=== PATIENT | male | born 1970 | race Caucasian/White ===

== ENCOUNTER 2016-09-08 04:41 | Emergency (ER) | payer BC, OTHER ==
[~2016-09-08] VITALS: Ht 177.8 cm; Wt 81.6 kg
[~2016-09-08 04:41] MED LIST: ACHD5005 PO; ASP81CT PO; CPR500T PO; NAPR-243 PO; PHEN100T26 PO
--- OUTSIDE RECORDS SUMMARY | 2016-09-08 04:46 | XMS REPORT | Continuity of Care Document ---
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 If you do not see the information that you expected, contact Release of Information in the Health Information Management department at [phone] for further assistance in locating additional records.[facility] Active Allergies and Adverse Reactions Allergen Noted Date Severity Reactions Comments Penicillins 01/23/2015 Medium RASH Current Medications Prescription Sig. Disp. Refills Start End Date Status Date hydrOXYzine (ATARAX) 25 Take 1 Tab by mouth at 30 Tab 5 04/25/20 Active mg tablet bedtime daily. Take four 15 tablets by mouth at bedtime. Active Problems Problem Noted Date Chronic urticaria 04/25/2015 Overview: He's had red, raised, demarcated, itchy areas of the face, neck, and extremities that come & go in 1-3 hours and occur every few weeks. He was having skin itching on most days. This was going for for 6 years. He was previously taking loratadine and diphenhydramine and was changed to hydroxyzine 50mg qHS at last visit. He's had no rash and less itching since taking hydroxyzine which is an improvement from previous. He did start having bilateral morning foot pain after starting hydroxyzine. It's not a commonly known side effect of hydroxyzine but it's possible. We discussed changing hydroxyzine to another antihistamine versus staying with hydroxyzine but lowering the dose to 25mg nightly. Patient decided to stay with hydroxyzine and lower the dose to 25mg nightly. Return to clinic in about 3-4 months. Angioedema 01/23/2015 Overview: He had an episode of top lip swelling in 2007 that resolved in 3-4 hrs after taking Benadryl. This same thing recurred in April 2014 and July 2014 with same treatment. In October 2014 he had bottom lip swelling that progressed to one side of top lip, then entire top lip, then surrounding cheeks. He took Benadryl and went to Urgent Care where he received steroid shot. He was given Epi pens to go home with. Swelling took 3 days to resolve that time. He had a follow-up appointment with his PCP in [place] a few days later and at that time had blood tests for IgE and a basic food serum allergen profile. His IgE was > 2000 U/ml. None of the serum allergy tests were elevated with the exception of a very mild elevation (0.11 kU/L) to milk and scallops and a mild elevation (0.18 kU/L) to clam. He denies eating clams or scallops, though he does ingest milk. A serum tryptase was not elevated. There has been no itching associated with the lip swelling. And he's had no airway involvement in any of the episodes. He stopped taking aspirin 81mg after the episode in October 2014. He was not having airway compromising angioedema, which is consistent with idiopathic angioedema (as opposed to allergic or hereditary angioedema). He does have an Epi-pen at home which he can use. It was previously discussed with patient that further testing (with C1 esterase level and/or functional assay) is an option, but will not necessarily be helpful; hereditary angioedema is highly unlikely as he is having associated hives, and the onset of his symptoms was around age 38. Given the non-seasonal, non-food related, non-insect related character of his symptoms, further allergy testing would not be warranted unless he has recurrent symptoms or new airway compromise, and then we would recommend further testing. No episodes of lip or tongue swelling since prior to last visit. Social History Tobacco Use Types Packs/Day Years Used Date Never Smoker Smokeless Tobacco: Never Used Alcohol Use Drinks/Week oz/Week Comments No Last Filed Vital Signs Vital Sign Reading Time Taken Blood Pressure 120/75 04/24/2015 4:00 PM CDT Pulse 69 04/24/2015 4:00 PM CDT Temperature 36.9 C (98.5 F) 04/24/2015 4:00 PM CDT Respiratory Rate 20 04/24/2015 4:00 PM CDT Height 1.575 m (5' 2.01") 04/24/2015 4:00 PM CDT Weight 78.926 kg (174 lb) 04/24/2015 4:00 PM CDT Body Mass Index 31.82 04/24/2015 4:00 PM CDT Oxygen Saturation - - Plan of Care Health Maintenance Due Date Last Done Comments Physical (Comprehensive) 1975 Exam Pertussis Vaccine 1979 Tetanus Vaccine 1985 Influenza Vaccine 05/09/2016 Results from Last 3 Months Not on file
[2016-09-08] MEDS ORDERED: HYDR-700 PO (04:50)
--- NOTE | 2016-09-08 05:14 | ED General ---
General Chief Complaint: Facial Problems Stated Complaint: FACIAL SWELLING Nursing Triage Note: Patient reports facial swelling x 2 hours. patient reports having a history of angioedema. denies throat or tongue involvement. patient took hydroxyzine and benadryl [employer] WORK[employer] Nursing Sepsis Screen: No Definite Risk Source of Information: Patient Exam Limitations: No Limitations History of Present Illness Time Seen by Provider: 04:57 Initial Comments This 46-year-old gentleman with history of angioedema presents with left lower facial swelling of sudden onset without any known trigger. He has had multiple episodes in the past and has been evaluated by a specialist. He reports steroid injections usually help resolve the symptoms. He takes hydroxyzine daily and he took 55 mg of Benadryl at home at 03:00 as well. He denies any respiratory, throat, or tongue symptoms. Allergies and Home Medications Allergies Coded Allergies: Penicillins (Verified Allergy, Mild, 09/30/12) Home Medications Aspirin 81 Mg Chew 81 MG PO DAILY (Reported) Hydroxyzine HCl 25 Mg Tablet 25 MG PO DAILY (Reported) Prednisone 20 Mg Tab #6 20 MG PO BID Prescribed by: LO CASANOVA on 09/08/16 0516 Constitutional: no symptoms reported EENTM: see HPI Respiratory: no symptoms reported Cardiovascular: no symptoms reported Gastrointestinal: no symptoms reported Genitourinary: no symptoms reported Musculoskeletal: no symptoms reported Skin: no symptoms reported Psychiatric/Neurological: No Symptoms Reported Hematologic/Lymphatic: No Symptoms Reported Past [id number] Hx Patient Social History Alcohol Use: Denies Use Recreational Drug Use: No Smoking Status: Never a Smoker Recent Foreign Travel: No Contact w/Someone Who Travel: No Recent Infectious Disease Expo: No Recent Hopitalizations: No Physical Abuse Screen: No Sexual Abuse: No Surgeries HX Surgeries: No Respiratory Hx Respiratory Disorders: No Cardiovascular Hx Cardiac Disorders: Yes (angioedema) Neurological Hx Neurological Disorders: No Reproductive System Hx Reproductive Disorders: No Sexually Transmitted Disease: No Genitourinary Hx Genitourinary Disorders: No Gastrointestinal Hx Gastrointestinal Disorders: No Musculoskeletal Hx Musculoskeletal Disorders: No Endocrine Hx Endocrine Disorders: No HEENT HX ENT Disorders: No Cancer Hx Cancer: No Psychosocial Hx Psychiatric Problems: No Integumentary HX Skin/Integumentary Disorder: No Blood Transfusions Hx Blood Disorders: No Physical Exam Vital Signs Vital Sign - Last 12Hours 09/08/16 04:45 Temp 96.1 Pulse 68 Resp 18 B/P 134/87 Pulse Ox 97 Capillary Refill : Less Than 3 Seconds General Appearance: No Apparent Distress WD/WN HEENT: PERRL/EOMI Pharynx Normal Other (left facial and lip swelling) Neck: Normal Inspection Respiratory: Lungs Clear Normal Breath Sounds No Accessory Muscle Use No Respiratory Distress Cardiovascular: Regular Rate, Rhythm No Edema No Murmur Normal Peripheral Pulses Extremity: Normal Inspection No Pedal Edema Neurologic/Psychiatric: Alert Oriented x3 No Motor/Sensory Deficits Normal 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 Norm as Tested Skin: Normal Color Warm/Dry Progress/Results/Core Measures Results/Orders My Orders Orders-LO DUBOSE MD Saline Lock/Iv-Start (09/08/16 05:05) Methylprednisolone Sod Succ (Solu-Medrol (09/08/16 05:15) Diphenhydramine Injection (Benadryl Inje (09/08/16 05:15) Famotidine Injection (Pepcid Injection) (09/08/16 05:15) Medications Given in ED Current Medications Medications Dose Ordered Sig/Carroll Route Start Time Stop Time Status Last Admin Dose Admin Diphenhydramine HCl 25 mg ONCE ONCE IVP 09/08/16 05:15 09/08/16 05:16 DC 09/08/16 05:15 25 MG Famotidine 20 mg ONCE ONCE IVP 09/08/16 05:15 09/08/16 05:16 DC 09/08/16 05:15 20 MG Methylprednisolone Sodium Succinate 125 mg ONCE ONCE IVP 09/08/16 05:15 09/08/16 05:16 DC 09/08/16 05:15 125 MG Vital Signs/I&O Vital Sign - Last 12Hours 09/08/16 04:45 Temp 96.1 Pulse 68 Resp 18 B/P 134/87 Pulse Ox 97 Blood Pressure Mean: 103 Progress Note #1: Time: 05:12 Progress Note IV was ordered for administration of IV Benadryl, Pepcid, and Solu-Medrol. Progress Note #2: Time: 06:02 Progress Note Patient had no further progression of symptoms and possibly slight improvement of symptoms prior to dismissal. He felt comfortable returning to home. He was given a short course of prednisone to help prevent recurrence. Return precautions were discussed. Departure Impression Impression: Primary Impression: Angioedema Qualified Code: T78.3XXA - Angioneurotic edema, initial encounter Disposition: 01 HOME, SELF-CARE Condition: Improved Departure-Patient Inst. Decision time for Depature: 06:03 Referrals: DANIEL BACH DO (PCP/Family) Primary Care Physician Patient Instructions: Angioedema Add. Discharge Instructions: Be mindful of possible triggers and avoid any triggers that are identified. Keep Benadryl and your EpiPen on hand. Take 50 mg of Benadryl at first sign of angioedema episode. You may also take 20 mg of Pepcid (famotidine) along with the Benadryl. Use your EpiPen for severe symptoms or for episodes that involves swelling of the tongue or mouth. Return to the emergency room for severe episodes. You may take the steroids as prescribed over the next few days to prevent recurrence. All discharge instructions reviewed with patient and/or family. Voiced understanding. Scripts Prednisone 20 Mg Tab20 Mg PO BID #6 TAB Prov:LO DUBOSE MD 09/08/16 LO DUBOSE MD Sep 08, 2016 05:14
[2016-09-08] MEDS ORDERED: FAMOTIDINE 20MG/2ML IV (PEPCID) IVP ONE (05:15)
[2016-09-08] MEDS ORDERED: diphenhydrAMINE 50 MG/ML INJ (BENADRYL) IVP ONE (05:15)
[2016-09-08] MEDS ORDERED: methylPREDNISolone 125 MG (Solu-MEDROL) VIAL IVP ONE (05:15)
[2016-09-08] MEDS ORDERED: PRD20T PO (05:16)
[2016-09-08 06:03] VITALS: BP 128/82
== END 2016-09-08 06:03 | disposition home or self-care (01) ==
LOC: EDUNIT# 04:41 → ER 04:42
DX: T78.3XXA Angioneurotic edema, initial encounter (principal)
CPT/HCPCS: 96374; 96375

== ENCOUNTER 2019-09-23 13:39 | Outpatient (CLI) | payer BC ==
[~2019-09-23] VITALS: Ht 177.8 cm; Wt 91.0 kg
[~2019-09-23 13:39] MED LIST changes: +HYDR-700 PO; +PRD20T PO
== END 2019-09-23 13:45 | disposition home or self-care (01) ==
LOC: PREOP 13:39
PROVIDERS: ATTEND Surgery
DX: Z01.818 Encounter for other preprocedural examination (principal)